=== PATIENT | male | born 1990 | race Caucasian/White ===

== ENCOUNTER 2016-06-11 16:54 | Emergency (ER) | payer BC ==
[~2016-06-11] VITALS: Ht 180.3 cm; Wt 75.0 kg
[2016-06-11 20:27] VITALS: BP 123/65
== END 2016-06-11 20:29 | disposition home or self-care (01) ==
LOC: EME 16:54
PROC: 0RSJXZZ Reposition Right Shoulder Joint, External Approach (ICD-10-PCS; principal; 2016-06-11)
DX: S43.004A Unspecified dislocation of right shoulder joint, initial encounter (principal); V00.321A Fall from snow-skis, initial encounter; Y93.23 Activity, snow (alpine) (downhill) skiing, snowboarding, sledding, tobogganing and snow tubing
CPT/HCPCS: 73030; 99281; 99284; J1170; J7030